=== PATIENT | male | born 1960 | race American Indian/Alaskan Native ===

== ENCOUNTER 2024-03-22 08:41 | Outpatient (AMB) | payer OTHER, SELFPAY ==
[2024-03-22 08:58] VITALS: BP 157/71; PULSE 64; RESP 19; TEMP 36.6; O2SAT 96; BMI 35.2
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
== END 2024-03-22 09:13 | disposition home or self-care (01) ==
LOC: HODSRG 08:41
PROVIDERS: PCP Family Medicine; Referring Provider Family Medicine; Supervising Provider Surgery; Visit Provider Surgery
DX: Z48.815 Encounter for surgical aftercare following surgery on the digestive system (principal)
CPT/HCPCS: 99213; G0463